=== PATIENT | male | born 1940 | race Caucasian/White ===

== ENCOUNTER → 2016-10-19 | Outpatient (CLI) | payer MEDICARE, BC ==
--- NOTE | 2016-10-19 14:37 | RAD ---
Indication right lower leg swelling for 3 weeks. Grayscale color Doppler and spectral imaging was performed. The examination was targeted to the veins of the right lower extremity. The common femoral, femoral and popliteal vessels demonstrate normal flow compressibility and augmentation. No thrombus is seen. The visualized calf veins appeared unremarkable. The left common femoral vein appeared normal. IMPRESSION: Negative right lower extremity venous analysis for DVT
== END | disposition home or self-care (01) ==
LOC: US 13:06
PROVIDERS: ATTEND Family Medicine
DX: I82.4Z1 Acute embolism and thrombosis of unspecified deep veins of right distal lower extremity (principal); M79.89 Other specified soft tissue disorders
CPT/HCPCS: 93971

== ENCOUNTER → 2018-02-08 | Outpatient (CLI) | payer BC, MEDICARE, OTHER ==
--- NOTE | 2018-02-08 12:02 | RAD ---
EXAM: Carotid Doppler sonogram. HISTORY: Dizziness. TECHNIQUE: Campbell scale and color Doppler sonographic evaluation of the neck with spectral waveform analysis was performed and static images are submitted for review. FINDINGS: There is mild atherosclerotic plaque within the bilateral carotid bulbs and proximal internal carotid arteries and there is intimal thickening involving the common carotid arteries. The peak systolic velocity within the right common carotid artery is 1 heart and 3 cm/sec. The peak systolic velocity within the right internal carotid artery is 57 cm/sec and the end diastolic velocity within the right internal carotid artery is 17 cm/sec. The right ICA/CCA ratio is 0.67. The peak systolic velocity within the left common carotid artery is 1 heart and 5 cm/sec. The peak systolic velocity within the left internal carotid artery is 63 cm/sec and the end diastolic velocity within the left internal carotid artery is 17 cm/sec. The left ICA/CCA ratio is 0.70. There is normal antegrade flow within both vertebral arteries. IMPRESSION: No Doppler evidence of hemodynamically significant stenosis within the carotid or vertebral arteries . PQRS Compliance Statement - Stenosis calculations for CT, MR and conventional angiography are based upon measurement of the distal ICA diameter in accordance with the NASCET methodology. Stenosis calculations for carotid ultrasound studies are derived from validated velocity criteria which are known to correlate with the NASCET methodology. Electronically signed by: Mary Jo Moon MD (02/08/2018 11:58 AM) [place] [id number]
== END | disposition home or self-care (01) ==
LOC: US 09:51
PROVIDERS: ATTEND Nurse Practitioner Family
DX: I65.23 Occlusion and stenosis of bilateral carotid arteries (principal); I70.8 Atherosclerosis of other arteries; I10 Essential (primary) hypertension
CPT/HCPCS: 93880

== ENCOUNTER → 2018-03-01 | Outpatient (CLI) | payer BC, MEDICARE ==
[2018-03-01 11:01] LABS: BASO # 0.1 x10^3/uL (0.0-0.2); BASO % 1 % (0-3); EOS # 0.1 x10^3/uL (0.0-0.7); EOS % 2 % (0-3); HEMATOCRIT 47.7 % (39.0-53.0); HEMOGLOBIN 16.2 g/dL (13.0-17.5); LYMPH # 1.3 x10^3/uL (1.0-4.8); LYMPH % 18 % (24-48); MEAN CORPUSCULAR HEMOGLOBIN 28 pg (25-35); MEAN CORPUSCULAR HGB CONC 34 g/dL (31-37); MEAN CORPUSCULAR VOLUME 84 fL (79-100); MONO # 0.6 x10^3/uL (0.0-1.1); MONO % 9 % (0-9); NEUT # 4.9 x10^3uL (1.8-7.7); NEUT % 70 % (31-73); PLATELET COUNT 203 x10^3/uL (140-400); RED BLOOD COUNT 5.71 x10^6/uL (4.30-5.70); RED CELL DISTRIBUTION WIDTH 14.3 % (11.5-14.5)
[2018-03-01 11:08] LABS: CALCIUM 9.1 mg/dL (8.5-10.1); GFR 72.5; POTASSIUM 4.4 mmol/L (3.5-5.1)
== END | disposition home or self-care (01) ==
LOC: LAB 10:43
PROVIDERS: ATTEND Family Medicine
DX: R42 Dizziness and giddiness (principal)
CPT/HCPCS: 36415; 80048; 84484; 85025

== ENCOUNTER → 2018-03-21 | Outpatient (CLI) | payer BC, MEDICARE, OTHER ==
--- NOTE | 2018-03-21 14:21 | RAD ---
CT HEAD WO CONTRAST History: Increased dizziness Comparison: None. Technique: Noncontrast CT imaging was performed of the head. Exposure: One or more of the following individualized dose reduction techniques were utilized for this examination: 1. Automated exposure control 2. Adjustment of the mA and/or kV according to patient size 3. Use of iterative reconstruction technique. 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 There is obliteration of most of normal frontal sinus, opacified residual left frontal sinus. There is adjacent encephalomalacia of the bilateral frontal lobes greater on the right. There is irregularity of the left medial orbital wall likely related to previous trauma or on a postsurgical basis. No acute intracranial hyperdense hemorrhage is identified. There is no midline shift. Ventricular size is within normal limits. Mastoid air cells are aerated. There is deviation nasal septum to the left. There is right tay bullosa. Impression: 1. No acute intracranial abnormality is identified. 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 There is obliteration most abnormal frontal sinus, opacification of the residual left frontal sinus.. Electronically signed by: Reginald De Leon MD (03/21/2018 2:18 PM) [id number]
== END | disposition home or self-care (01) ==
LOC: CT 12:49
PROVIDERS: ATTEND Nurse Practitioner Family
DX: G93.89 Other specified disorders of brain (principal); J34.2 Deviated nasal septum
CPT/HCPCS: 70450

== ENCOUNTER → 2018-04-22 | Outpatient (CLI) | payer MEDICARE ==
[2018-04-22 13:03] LABS: BASO # 0.1 x10^3/uL (0.0-0.2); BASO % 1 % (0-3); EOS # 0.1 x10^3/uL (0.0-0.7); EOS % 2 % (0-3); HEMATOCRIT 44.9 % (39.0-53.0); HEMOGLOBIN 15.3 g/dL (13.0-17.5); LYMPH # 1.1 x10^3/uL (1.0-4.8); LYMPH % 16 % (24-48); MEAN CORPUSCULAR HEMOGLOBIN 29 pg (25-35); MEAN CORPUSCULAR HGB CONC 34 g/dL (31-37); MEAN CORPUSCULAR VOLUME 84 fL (79-100); MONO # 0.6 x10^3/uL (0.0-1.1); MONO % 9 % (0-9); NEUT # 5.1 x10^3uL (1.8-7.7); NEUT % 72 % (31-73); PLATELET COUNT 170 x10^3/uL (140-400); RED BLOOD COUNT 5.37 x10^6/uL (4.30-5.70); RED CELL DISTRIBUTION WIDTH 14.7 % (11.5-14.5)
[2018-04-22 13:10] LABS: ALBUMIN 3.8 g/dL (3.4-5.0); ALBUMIN/GLOBULIN RATIO 1.1 (1.0-1.7); GFR 72.5; TOTAL BILIRUBIN 0.7 mg/dL (0.2-1.0); TOTAL PROTEIN 7.3 g/dL (6.4-8.2)
== END | disposition home or self-care (01) ==
LOC: CT 11:38
PROVIDERS: ATTEND Family Medicine
DX: R19.34 Left lower quadrant abdominal rigidity (principal)
CPT/HCPCS: 36415; 80053; 85025

== ENCOUNTER → 2018-04-26 | Outpatient (CLI) | payer MEDICARE ==
--- NOTE | 2018-04-26 15:53 | RAD ---
CT ABDOMEN PELVIS WO CONTRAST Indication: LLQ PAIN WITH URINARY PRESSURE AND URINARY FREQUENCY. NO CONTRAST PER ORDER Exposure: One or more of the following individualized dose reduction techniques were utilized for this examination: 1. Automated exposure control 2. Adjustment of the mA and/or kV according to patient size 3. Use of iterative reconstruction technique. Comparison: None are available. Contrast: No intravenous contrast given. No oral contrast per request. Evaluation of solid viscera, bowel and vasculature is compromised by the noncontrast technique. Lower thorax: Mild linear atelectasis or fibrosis in the lung bases. Coronary artery calcifications. Liver: Unremarkable Spleen: Unremarkable Pancreas: Unremarkable Adrenals: No evidence of mass. Kidneys: No obvious mass. Mild bilaterally symmetric stranding in the perinephric fat can be associated with chronic renal disease. More acute inflammation considered unlikely given its asymmetric nature. Urinary tracts: No urolithiasis or hydronephrosis. Gallbladder: Surgically absent Aorta: Mildly calcified, no aneurysm. Lymph nodes: No significant enlargement GI tract: Small hiatal hernia. No bowel obstruction. Colonic diverticulosis. Focal wall thickening of short segment of sigmoid colon with stranding in the surrounding fat. There is a small fatty mass within the distal ileum, measuring 2.6 cm, most compatible with a lipoma. Appendix is normal. Reproductive organs: Prostate gland mildly enlarged. Urinary bladder: Diffuse slightly irregular wall thickening. Peritoneum: No evidence of pneumoperitoneum or ascites. No evidence of an abscess. Abdominal wall: Unremarkable Spine: Mild flattening of the L4 vertebral body, greater at the superior endplate, most likely due to a chronic fracture. No acute cortical step-off is seen. Degenerative spondylosis. Bones: No destructive process identified. External Soft Tissue: No acute findings. IMPRESSION: 1. Diverticulosis. Abnormal wall thickening and surrounding inflammatory stranding involving the sigmoid colon, compatible with a colitis, most likely diverticulitis. Follow-up with colonoscopy after acute treatment could be of benefit to exclude an underlying mass. 2. Fatty mass within the distal ileum measuring 2.6 cm, most compatible with a lipoma. 3. Diffuse mildly irregular wall thickening of the urinary bladder. Findings could indicate urinary bladder outlet obstruction, cystitis or less likely neoplastic etiology. Correlate clinically or with cystoscopy. 4. Mild prostatomegaly. Electronically signed by: Casey Delvalle MD (04/26/2018 3:49 PM) [id number]
== END | disposition home or self-care (01) ==
LOC: CT 14:56
PROVIDERS: ATTEND Family Medicine
DX: K57.30 Diverticulosis of large intestine without perforation or abscess without bleeding (principal); R19.09 Other intra-abdominal and pelvic swelling, mass and lump; M47.896 Other spondylosis, lumbar region; K44.9 Diaphragmatic hernia without obstruction or gangrene; I25.10 Atherosclerotic heart disease of native coronary artery without angina pectoris
CPT/HCPCS: 74176

== ENCOUNTER → 2018-06-11 | Outpatient (CLI) | payer MEDICARE ==
[2018-06-11 16:13] LABS: BASO # 0.1 x10^3/uL (0.0-0.2); BASO % 1 % (0-3); EOS # 0.2 x10^3/uL (0.0-0.7); EOS % 3 % (0-3); HEMOGLOBIN 15.3 g/dL (13.0-17.5); LYMPH # 1.2 x10^3/uL (1.0-4.8); LYMPH % 17 % (24-48); MEAN CORPUSCULAR HEMOGLOBIN 29 pg (25-35); MEAN CORPUSCULAR HGB CONC 34 g/dL (31-37); MEAN CORPUSCULAR VOLUME 85 fL (79-100); MONO # 0.6 x10^3/uL (0.0-1.1); MONO % 9 % (0-9); NEUT # 4.8 x10^3uL (1.8-7.7); NEUT % 71 % (31-73); PLATELET COUNT 190 x10^3/uL (140-400); RED BLOOD COUNT 5.33 x10^6/uL (4.30-5.70); RED CELL DISTRIBUTION WIDTH 14.5 % (11.5-14.5); WHITE BLOOD COUNT 6.8 x10^3/uL (4.0-11.0)
== END | disposition home or self-care (01) ==
LOC: LAB 15:40
PROVIDERS: ATTEND Family Medicine
DX: R07.89 Other chest pain (principal); R05 Cough
CPT/HCPCS: 36415; 82553; 84484; 85025; 86140

== ENCOUNTER → 2018-06-28 | Outpatient (CLI) | payer MEDICARE ==
[~2018-06-28] MED LIST: IOHEXOL 240 MG/ML 50ML VIAL. ONE
--- NOTE | 2018-06-28 17:06 | RAD ---
CT abdomen and pelvis without contrast. HISTORY: Left lower quadrant pain, constipation, diverticulitis CT scan of the abdomen pelvis was done without intravenous contrast. Lung bases are clear. There is no effusion. A liver lesion is not identified. The patient's had a cholecystectomy. Spleen and adrenal glands are normal. Pancreas is normal. There is a small duodenal diverticulum. There is no mass or hydronephrosis in the kidneys. There is no free air. There is no bowel obstruction. Appendix is normal. There is inflammation adjacent to the sigmoid colon consistent with an acute diverticulitis. There is inflammation adjacent to the bladder which was present on the prior study study. There is bladder wall thickening on the left. Cystoscopy could be of benefit to exclude gallbladder cancer. The prostate is enlarged. IMPRESSION: 1. Mild diverticulitis. 2. No abscess or free air noted. 3. Density in the mesentery adjacent to the bladder with thickening of the bladder wall cystoscopy would be of benefit to exclude a bladder cancer. PQRS Compliance Statement: One or more of the following individualized dose reduction techniques were utilized for this examination: 1. Automated exposure control 2. Adjustment of the mA and/or kV according to patient size 3. Use of iterative reconstruction technique Electronically signed by: Teo Seo MD (06/28/2018 5:01 PM) [facility]
== END | disposition home or self-care (01) ==
LOC: CT 14:13
PROVIDERS: ATTEND Family Medicine
DX: K57.32 Diverticulitis of large intestine without perforation or abscess without bleeding (principal); N40.0 Benign prostatic hyperplasia without lower urinary tract symptoms; K57.10 Diverticulosis of small intestine without perforation or abscess without bleeding; Z90.49 Acquired absence of other specified parts of digestive tract
CPT/HCPCS: 74176

== ENCOUNTER → 2020-02-27 | Outpatient (CLI) | payer BC, MEDICARE ==
--- NOTE | 2020-02-27 11:29 | RAD ---
EXAMINATION: CT ABDOMEN PELVIS WO CONTRAST (CT ABDOMEN/PELVIS WITHOUT IV CONTRAST) CLINICAL HISTORY: Left lower quadrant pain TECHNIQUE: Non-IV contrast imaging of the abdomen and pelvis was performed using standard technique, scanning from just above the dome of the diaphragm to the symphysis pubis. Unenhanced imaging is limited for the evaluation of some intra-abdominal and pelvic pathology. CT Dose Reduction Employed: One or more of the following individualized dose reduction techniques were utilized for this examination: 1. Automated exposure control 2. Adjustment of the mA and/or kV according to patient size 3. Use of iterative reconstruction technique. COMPARISON: 06/28/2018, 04/26/2018 FINDINGS: Lower thorax: Partially visualized opacity in the posterior left upper lobe, incompletely evaluated. Coronary arterial calcification. Liver: Unremarkable. Biliary: Prior cholecystectomy. Spleen: No splenomegaly. Pancreas: Unremarkable. Adrenals: No mass. Kidneys: No calculus, hydronephrosis or finding to suggest a cyst or mass in the unenhanced kidneys. GI Tract: Left-sided colonic diverticulosis with nonspecific mild stranding adjacent to the antimesenteric border of the sigmoid colon, similar on prior study. Lack of adequate colonic distention limits evaluation for sigmoid wall thickening. Small diverticulum in the third segment of the duodenum, similar to prior study. Normal air-filled appendix. Small hiatal hernia. Lymph Nodes: No lymphadenopathy. Mesentery/peritoneum: No ascites. Retroperitoneum: No mass. Vasculature: Arterial atherosclerotic disease without aneurysm. Pelvis: No mass or ascites. Minimally filled urinary suboptimally evaluated with nonspecific perivesical stranding. Mildly enlarged prostate with coarse calcifications. Single surgical clip in the rectovesical pouch. Bones/Soft Tissues: Degenerative changes of the thoracolumbar spine with mild central compression deformity of the L4 vertebral body, similar to prior study. IMPRESSION: Colonic diverticulosis with essentially unchanged nonspecific stranding adjacent to the sigmoid colon. This may represent recurrent mild diverticulitis versus chronic changes. Redemonstration of minimally distended urinary bladder with nonspecific perivesical stranding. Mildly enlarged prostate, correlate with PSA levels. Partially visualized opacity in the posterior left upper lobe, recommend chest radiograph and/or nonemergent CT chest for further evaluation. Electronically signed by: Carlo Resendez DO (02/27/2020 11:26 AM) [id number]
== END ==
LOC: CT 10:09
PROVIDERS: ATTEND Family Medicine
DX: K57.30 Diverticulosis of large intestine without perforation or abscess without bleeding (principal); K44.9 Diaphragmatic hernia without obstruction or gangrene; N40.0 Benign prostatic hyperplasia without lower urinary tract symptoms; K63.89 Other specified diseases of intestine; M43.8X6 Other specified deforming dorsopathies, lumbar region; N32.89 Other specified disorders of bladder; M47.815 Spondylosis without myelopathy or radiculopathy, thoracolumbar region; I25.10 Atherosclerotic heart disease of native coronary artery without angina pectoris
CPT/HCPCS: 74176

== ENCOUNTER → 2020-03-26 | Outpatient (CLI) | payer MEDICARE ==
[~2020-03-26] MED LIST changes: -IOHEXOL 240 MG/ML 50ML VIAL. ONE; +IOHEXOL 350 MG/ML 100 ML VIAL. IV ONE
--- NOTE | 2020-03-26 15:16 | RAD ---
EXAM: CT angiography of the chest with intravenous contrast. HISTORY: Pain. TECHNIQUE: Computed tomographic images of the chest were obtained following the administration of intravenous contrast according to angiography protocol. Multiplanar reformatting was performed and three dimensional maximum intensity projection images were obtained. *One or more of the following individualized dose reduction techniques were utilized for this examination: 1. Automated exposure control. 2. Adjustment of the mA and/or kV according to patient size. 3. Use of iterative reconstruction technique. COMPARISON: None. FINDINGS: There is no evidence of pulmonary embolism. The heart is upper normal in size. The aorta is normal in caliber. There is no lymphadenopathy. There is heavily calcified atherosclerotic plaque involving the coronary arteries. There is no pleural effusion or pneumothorax. There is partial right middle lobe and left basilar consolidation. There is also lingular pleural parenchymal scarring. There is posterior dependent and basilar atelectasis. There is a 3 mm nodule within the posterior right upper lobe. There is a cluster of nodules measuring up to 7 mm within the posterior left upper lobe. There is no acute finding involving the upper abdomen. There is a tiny hiatal hernia. The gallbladder is surgically absent. There are degenerative changes involving the spine. There is no suspicious osseous lesion. IMPRESSION: 1. No evidence of pulmonary embolism. 2. Partial right middle lobe and left basilar consolidation superimposed on posterior dependent and basilar predominant atelectasis. 3. Cluster of nodules measuring up to 7 mm within the posterior inferior left upper lobe. This is stable compared to a study performed 02/27/2020 and new compared to a study performed 04/26/2018. Short-term follow-up is recommended in 6 months. There is a tiny suspected benign nodule within the right upper lobe. Electronically signed by: Mary Jo Moon MD (03/26/2020 3:13 PM) [id number]
== END ==
LOC: CT 14:08
PROVIDERS: ATTEND Family Medicine
DX: J98.11 Atelectasis (principal); R91.1 Solitary pulmonary nodule; J98.4 Other disorders of lung; I25.10 Atherosclerotic heart disease of native coronary artery without angina pectoris; R79.1 Abnormal coagulation profile
CPT/HCPCS: 71275; Q9967

== ENCOUNTER → 2021-01-17 | Outpatient (CLI) | payer MEDICARE ==
[~2021-01-17] VITALS: Ht 180.3 cm; Wt 100.0 kg
[~2021-01-17] MED LIST changes: -IOHEXOL 350 MG/ML 100 ML VIAL. IV ONE; +VANCOMYCIN 2 GM in IV NORMAL SALINE 500ML 500 ML IV ONE; +VANCOMYCIN PER PHARMACY MC PRN
--- NOTE | 2021-01-17 17:54 | NUR ---
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
--- NOTE | 2021-01-17 17:55 | NUR ---
Procedure: Following complete explanation of the PICC procedure including the indications, risks, and potential complications, informed consent was obtained. The possibility for infection was discussed along with signs, symptoms, and prevention. All the patient's questions were answered. IV Device Protocol was used. Written and verbal patient education was provided. Hand hygiene performed. Standardized central line checklist was utilized. The patient was placed in the supine position, per pt request, the left arm was prepped with chlorhexidine and patient draped with maximum sterile barrier. 1 mL 1% lidocaine was infiltrated into the skin to provide local anesthesia. A thorough assessment of the left upper extremity completed. Using real-time ultrasound guidance and standardized micro puncture set, the basilic vein was punctured and a peel away sheath was placed using the modified Seldinger technique. A tip location device was used to ensure adequate catheter placement. The catheter was secured using a securement device and an antimicrobial patch was applied directly on the insertion site followed by a transparent dressing. All ports withdraw blood and flush without resistance. Patient tolerated the procedure without apparent complication(s). A double Lumen Power PICC placement successful and uncomplicated. Placement verified by EKG tip confirmation system with green ekg and daiana observed. Tip located in the low SVC per 3CG Complications:
[2021-01-17 18:10] VITALS: BP 153/75
[2021-01-17 18:16] LABS: BASO # 0.1 x10^3/uL (0.0-0.2); BASO % 1 % (0-3); EOS # 0.2 x10^3/uL (0.0-0.7); EOS % 4 % (0-3); HEMATOCRIT 43.2 % (39.0-53.0); HEMOGLOBIN 14.4 g/dL (13.0-17.5); LYMPH # 1.2 x10^3/uL (1.0-4.8); LYMPH % 19 % (24-48); MEAN CORPUSCULAR HEMOGLOBIN 28 pg (25-35); MEAN CORPUSCULAR HGB CONC 33 g/dL (31-37); MEAN CORPUSCULAR VOLUME 85 fL (79-100); MONO # 0.6 x10^3/uL (0.0-1.1); MONO % 10 % (0-9); NEUT # 4.4 x10^3uL (1.8-7.7); NEUT % 67 % (31-73); PLATELET COUNT 152 x10^3/uL (140-400); RED CELL DISTRIBUTION WIDTH 14.3 % (11.5-14.5); WHITE BLOOD COUNT 6.6 x10^3/uL (4.0-11.0)
--- NOTE | 2021-01-17 18:41 | NUR ---
PATIENT ARRIVED FOR OUTP INFUSION. PICC LINE ACCESS WITH GOOD BLOOD RETURN, BLOOD DRAWN PER PROTOCOL. INFUSION STARTED.
--- NOTE | 2021-01-17 21:05 | NUR ---
PT INFUSION COMPLETE. PICC FLUSHED WITH 10ML NS WITH GOOD BLOOD RETURN. PT AMBULATED OFF FLOOR WITH ALL BELONGINGS.
== END | disposition home or self-care (01) ==
LOC: OPINF 17:02
PROVIDERS: ATTEND Family Medicine
DX: H70.90 Unspecified mastoiditis, unspecified ear (principal); R79.1 Abnormal coagulation profile; J98.11 Atelectasis; I25.10 Atherosclerotic heart disease of native coronary artery without angina pectoris; R10.32 Left lower quadrant pain
CPT/HCPCS: 36415; 85025; 96365; 96366; 96368; J0696; J3370; J7040